=== PATIENT | female | born 2000 | race African-American/Black ===

== ENCOUNTER 2022-10-05 09:07 | Emergency (ER) | payer MEDICAID ==
[~2022-10-05] VITALS: Ht 167.6 cm; Wt 62.0 kg
[~2022-10-05 09:07] MED LIST: LORA5TAB8; [UNRECOGNIZED DRUG - REMARK]
[2022-10-05 12:23] LABS: BASOPHILS % 0.6 % (0.0-2.0); EOSINOPHILS % 0.7 % (0.0-5.0); HEMATOCRIT. 25.8 % (36.0-48.0); HEMOGLOBIN. 8.2 g/dL (12.0-16.0); LYMPHOCYTES % 14.7 % (20.0-50.0); MEAN CORPUSCULAR HEMOGLOBIN 23.1 pg (28.0-32.0); MEAN CORPUSCULAR VOLUME 72.7 fL (81.0-99.0); MEAN PLATELET VOLUME 8.4 fl (7.4-10.4); MONOCYTES % 9.6 % (2.0-8.0); NEUTROPHILS % 74.4 % (40.0-76.0); PLATELET 212 x1000/uL (130-400); RED BLOOD CELL COUNT 3.55 mill/uL (4.2-5.4); RED CELL DISTRIBUTION WIDTH 19.8 % (11.6-14.6)
[2022-10-05 12:26] LABS: CHLORIDE 109 mEq/L (98-107)
[2022-10-05 12:39] LABS: B-HCG QUANTITATIVE < 1 mIU/mL (<3)
[2022-10-05] MEDS ORDERED: KETOROLAC 15MG/ML VIAL IM ONE (12:45)
[2022-10-05 13:01] LABS: CLARITY URINE TURBID (CLEAR); COLOR URINE RED (YELLOW); KETONES URINE TRACE (NEGATIVE); LEUKOCYTE ESTERASE URINE 1+ (NEGATIVE); NITRITE URINE NEGATIVE (NEGATIVE); OCCULT BLOOD URINE 3+ (NEGATIVE); PROTEIN URINE 2+ (NEGATIVE); SPECIFIC GRAVITY URINE 1.024 (1.005-1.030)
[2022-10-05 13:39] VITALS: BP 117/63
[2022-10-05] MEDS ORDERED: CEFTRIAXONE SODIUM 500 MG/VIAL IM ONE (14:15)
[2022-10-05] MEDS ORDERED: DOXYCYCLINE HYCLATE 100MG CAPSULE PO ONE (14:15)
[2022-10-05] MEDS ORDERED: DOXY-326 MT (14:17)
== END 2022-10-05 15:02 | disposition home or self-care (01) ==
LOC: ER 09:17
DX: N93.8 Other specified abnormal uterine and vaginal bleeding (principal); N73.9 Female pelvic inflammatory disease, unspecified; A59.9 Trichomoniasis, unspecified
CPT/HCPCS: 36415; 76700; 80053; 81003; 81025; 83690; 84702; 85025; 86850; 86900; 86901; 96372; 99284; J0696; J1885